=== PATIENT | male | born 1995 | race African-American/Black ===

== ENCOUNTER 2017-04-12 21:53 | Emergency (ER) | payer BC ==
[~2017-04-12] VITALS: Ht 167.6 cm; Wt 71.0 kg
[2017-04-12 21:57] VITALS: Ht 167.6 cm; Wt 71.0 kg
--- NOTE | 2017-04-13 00:06 | ERD ---
ER Documentation Chief Complaint Date/Time DATE: 04/13/17 TIME: 00:02 Chief Complaint requesting for drug test HPI This 21-year-old male patient presents to emergency department with reports of being tired, patient comes in with staff from sober living facility that he has just entered today. They are unable to complete full intake process until patient has drug testing. Patient admits to marijuana use, denies any other drug, reports that he does drink alcohol but has not drank alcohol today. Patient denies the use of benzodiazepines, methamphetamine, cocaine, or opiates. Patient reports he is just tired and agrees to drug testing. ROS All systems reviewed and are negative except as per history of present illness. Allergies Allergies: Coded Allergies: No Known Allergy (Unverified , 04/12/17) PMhx/Soc History of Surgery: No Anesthesia Reaction: No Hx Neurological Disorder: No Hx Respiratory Disorders: No Hx Cardiac Disorders: No Hx Psychiatric Problems: No Hx Miscellaneous Medical Probl: No Hx Alcohol Use: Yes Hx Substance Use: Yes Hx Tobacco Use: No Smoking Status: Never smoker Physical Exam Vitals Vital Signs Date Time Temp Pulse Resp B/P Pulse Ox O2 Delivery O2 Flow Rate FiO2 04/12/17 21:57 97.8 81 20 128/66 96 Vitals stable, triage notes reviewed Physical Exam Const: Intermittently sleeping, wakes easily, speech is clear, no acute distress Head: Atraumatic Eyes: Normal Conjunctiva, PERRLA, EOMI, ENT: Normal External Ears, Nose and Mouth. Neck: Resp: Chest rise and fall symmetrically, no respiratory distress Cardio: Abd: Skin: Back: Ext: Neur: Patient intermittently sleeping, wakes easily, appears sedated Psych: Normal Mood and Affect Procedures/MDM This 21-year-old male patient presents to emergency department for drug screening. Patient is being processed into a sober living today and became obviously impaired. Patient reports he is just tired admits to marijuana use, denies alcohol, denies benzodiazepines. Patient is pleasant. Non-aggressive and agrees to drug testing. Urine tox screen is negative for amphetamines, barbiturates, positive for benzodiazepines, THC, negative for cocaine and opiates. I feel the patient is stable for discharge at this time. I have discussed results, examination findings, the treatment plan with the patient and family present prior to discharge. Indications for emergent reevaluation, side effects of medication were also discussed. All questions were answered. Patient verbalizes understanding and agrees with plan of care. Departure Diagnosis: Primary Impression: Encounter for laboratory test Condition: Good Patient Instructions: Signs of Addiction to Prescription Drugs Additional Instructions: Thank you for for coming to [facility] for your care today. Please ask your nurse or provider if you have questions about your care today and do not leave until all your questions have been answered. Please use any medications given as directed and follow-up with your doctor (or the doctor you were referred to) in the next 2-3 days. If you do not have a primary care doctor you may follow up at the [facility] (listed below). You may also use motrin and tylenol as needed for fever and/or pain unless instructed otherwise by your provider or nurse. Indications for more urgent follow-up have been discussed, but you may return to the Emergency Department at ANY time for any worrisome or worsening symptoms. If you have abdominal pain, please know that no test or exam you received is perfect and you should follow up within 8 hours for continued pain. If you had any imaging studies today, such as an X-Ray or CT Scan, these studies will be reviewed later by a radiologist. You will be called if there are important findings that were not identified today, so make sure the contact information you provided at registration is correct. If you received any narcotic pain control medicine today, such as Vicodin, Morphine or Dilaudid, your coordination and judgment may be affected for a number of hours. Please do not drive or operate heavy machinery, and you may want someone to assist you at home. If you were given a prescription for narcotic medication, be aware that it is very addictive- use sparingly and only if necessary. MARIAN SIEGEL Apr 13, 2017 00:06
[2017-04-13 00:46] LABS: BARBITURATES NEGATIVE (NEGATIVE); BENZODIAZEPINES POSITIVE (NEGATIVE); CANNABINOIDS POSITIVE (NEGATIVE); COCAINE NEGATIVE (NEGATIVE); OPIATES NEGATIVE (NEGATIVE)
== END 2017-04-13 02:17 | disposition home or self-care (01) ==
LOC: FTE 21:53
DX: F12.90 Cannabis use, unspecified, uncomplicated (principal); Z00.01 Encounter for general adult medical examination with abnormal findings
CPT/HCPCS: 80307; 99283